=== PATIENT | female | born 1995 | race Caucasian/White ===

== ENCOUNTER 2018-01-29 16:38 | Emergency (ER) | payer BC, SELFPAY ==
[2018-01-29] MEDS ORDERED: Metoclopramide HCl 10 MG/2 ML VIAL ONE (18:18)
[2018-01-29] MEDS ORDERED: Acetaminophen 500 MG TAB ONE (18:21)
[2018-01-29 19:36] LABS: Bilirubin Negative (Negative); Blood, Urine Negative (Negative); Clarity CLEAR (Clear); Glucose, Urine (Dipstick) Negative (Negative); Leukocyte Trace (Negative); Nitrite Negative (Negative); Protein, Urine (Dipstick) Negative (Neg-Trace); Specific Gravity, Urine 1.023 (1.002-1.036); pH, Urine 6.5 (5.0-9.0)
[2018-01-29 19:39] LABS: Bacteria/HPF 1+ HPF (None Seen); Hyaline Casts/LPF 7-10 HYALINE CAST LPF (0-3 Hyaline); Pathc Cast-AUWi Flag 2.18 (0-2.49); RBC/HPF 0-3 HPF (0-3)
[2018-01-29] MEDS ORDERED: Lidocaine Viscous Sol 2% 15 ml UD Cup ONE (19:54)
[2018-01-29] MEDS ORDERED: Mag-Al 1200 mg/1200 mg/30 ML UDCUP ONE (19:54)
== END 2018-01-29 20:04 | disposition home or self-care (01) ==
LOC: ERS 16:38
DX: O99.341 Other mental disorders complicating pregnancy, first trimester (principal); F07.81 Postconcussional syndrome; O99.331 Smoking (tobacco) complicating pregnancy, first trimester; F17.210 Nicotine dependence, cigarettes, uncomplicated; Z3A.12 12 weeks gestation of pregnancy
CPT/HCPCS: 81003; 81015; 96365; J2765

== ENCOUNTER 2020-08-13 12:10 | Emergency (ER) | payer OTHER, SELFPAY ==
[2020-08-13 12:42] LABS: #Basophils 0.1 thou/uL (0.0-0.2); #Eosinphils 0.1 thou/uL (0.0-0.7); #Lymphocytes 1.5 thou/uL (1.20-3.40); #Monocytes 0.4 thou/uL (0.11-0.59); %Basophils 0.8 % (0.0-1.0); %Eosinophils 1.2 % (0.0-10.0); %Lymphocytes 17.9 % (21.0-51.0); %Monocytes 5.5 % (0.0-10.0); %Neutrophils 74.7 % (42.0-75.0); Hemoglobin 13.7 g/dL (12.0-16.0); Mean Corpuscular HGB CONC 35.7 g/dL (32.0-36.0); Mean Corpuscular Hemoglobin 32.5 pg (27.0-31.0); Mean Corpuscular Volume 91.2 fL (78.0-98.0); Mean Platelet Volume 7.6 fL (7.4-10.4); Platelet Count 224 thou/uL (130-400); RBC Distribution Width 11.5 % (11.5-14.5); Red Blood Cell (RBC) Count 4.21 mill/uL (4.20-5.40); White Blood Cell (WBC) Count 8.1 thou/uL (4.8-10.8)
[2020-08-13 12:53] LABS: Bilirubin Negative (Negative); Blood, Urine 2+ (Negative); Clarity Turbid (Clear); Glucose, Urine (Dipstick) Normal (Negative); Ketone, Urine 100 mg/dL (Negative); Leukocyte 250 Leu/uL (Negative); Mucous/LPF 2+ LPF (<2+); Nitrite Negative (Negative); Protein, Urine (Dipstick) 30 mg/dL (Neg-Trace); RBC/HPF 0-3 HPF (0-3); Specific Gravity, Urine 1.027 (1.002-1.036); pH, Urine 6.5 (5.0-9.0)
[2020-08-13 12:55] LABS: ALT (SGPT) 19 U/L (8-55); AST (SGOT) 19 U/L (5-34); Albumin 4.1 g/dL (3.5-5.0); Alkaline Phosphatase 119 U/L (40-110); Anion Gap 16 mmol/L (10-20); BUN (Urea Nitrogen) 7 mg/dL (7.0-18.7); Bilirubin, Total 0.4 mg/dL (0.2-1.2); Calc. Creatinine Clearance 0 mL/min (70-130); Calcium 9.6 mg/dL (7.8-10.44); Carbon Dioxide 22 mmol/L (22-29); Chloride 102 mmol/L (98-107); Globulin 3.8 g/dL (2.4-3.5); Glucose 105 mg/dL (70-105); Protein, Total 7.9 g/dL (6.0-8.3); Sodium 137 mmol/L (136-145)
[2020-08-13 13:00] LABS: Potassium 2.9 mmol/L (3.5-5.1)
[2020-08-13 13:04] LABS: Bacteria/HPF 1+ HPF (None Seen)
[2020-08-13] MEDS ORDERED: Potassium Chloride 20 MEQ TAB ONE (13:21)
[2020-08-13] MEDS ORDERED: Potassium Chloride 40 MEQ in Sodium Chloride 0.9% 250 ML 250 ML IVPB SCH (13:30)
[2020-08-13] MEDS ORDERED: Potassium Chloride 20 MEQ TAB PO SCH (13:30)
--- NOTE | 2020-08-13 14:17 | ULT ---
LIMITED OB ULTRASOUND: 08/13/20 HISTORY: Vaginal bleeding. FINDINGS: A single intrauterine gestation is seen with measurements corresponding to an estimated gestational a ge of 13 weeks, 0 days. measurements are as follows: BDP 1.64 cm 12 weeks, 3 days HC 6.90 cm 12 weeks, 5 days AC 6.88 cm 13 weeks, 3 days FL 1.12 cm 13 weeks, 2 days No heart tones are seen. There is decreased amniotic fluid. There is subarachnoid hemorrhage se en superior to the gestational sac. The maternal adnexa is not visualized. No free fluid is seen in the cul-de-sac. IMPRESSION: Findings are consistent with demise. POS: OFF
== END 2020-08-13 14:57 | disposition home or self-care (01) ==
LOC: ERS 12:10
DX: O02.1 Missed abortion (principal); E87.6 Hypokalemia; F17.210 Nicotine dependence, cigarettes, uncomplicated
CPT/HCPCS: 36415; 76815; 80053; 81003; 81015; 84702; 85025; 86900; 86901; 96374; J3480; J7050